=== PATIENT | female | born 1985 | race Caucasian/White ===

== ENCOUNTER → 2017-10-12 | Outpatient (CLI) | payer OTHER, BC ==
[~2017-10-12] MED LIST: IBUP800 PO; Verotin-Gr Cap1 EACH PO
[2017-10-16 21:09] LABS: CHLAMYDIA TRACHOMATIS, NAA Negative (Negative); NEISSERIA GONORRHOEAE, NAA Negative (Negative)
== END | disposition home or self-care (01) ==
LOC: LAB SHORT 11:35 → LAB 11:35
PROVIDERS: Family Medicine
DX: Z11.3 Encounter for screening for infections with a predominantly sexual mode of transmission (principal)
CPT/HCPCS: 87491; 87591

== ENCOUNTER 2018-07-03 20:15 | Inpatient (IN) | payer OTHER, BC ==
[~2018-07-03] VITALS: Ht 165.1 cm; Wt 0.1 kg
[2018-07-03 21:05] LABS: BASOPHILS ABSOLUTE AUTO 0.03 K/mm3 (0.00-0.23); BASOPHILS PERCENT AUTO 0 % (0-2); EOSINOPHILS ABSOLUTE AUTO 0.13 K/mm3 (0.00-0.68); EOSINOPHILS PERCENT AUTO 1 % (0-6); Hematocrit 36.8 % (33.0-51.0); Hemoglobin 12.6 g/dL (11.5-16.0); IMMATURE GRAN ABSOLUTE AUTO 0.07 K/mm3 (0.00-0.10); IMMATURE GRAN PERCENT AUTO 1 % (0-1); LYMPHOCYTES ABSOLUTE AUTO 1.52 K/mm3 (0.84-5.20); LYMPHOCYTES PERCENT AUTO 14 % (21-46); MONOCYTES PERCENT AUTO 5 % (4-13); Mean Corpuscular HGB 30.7 pg (26.0-34.0); Mean Corpuscular HGB Conc 34.2 g/dL (31.5-36.5); Mean Corpuscular Volume 90 fL (80-100); Mean Platelet Volume 9.4 fL (9.1-12.4); NEUTROPHILS ABSOLUTE AUTO 8.91 K/mm3 (1.96-9.15); NEUTROPHILS PERCENT AUTO 79 % (41-73); Platelet Count 221 K/mm3 (150-400); RDW Standard Deviation 42.6 fL (35.1-46.3); White Blood Cell Count 11.26 K/mm3 (4.00-11.30)
--- NOTE | 2018-07-04 16:26 | NUR ---
PLACED BY Rocío SARAH [facility]
[2018-07-05 06:17] LABS: BASOPHILS ABSOLUTE AUTO 0.03 K/mm3 (0.00-0.23); BASOPHILS PERCENT AUTO 0 % (0-2); EOSINOPHILS ABSOLUTE AUTO 0.07 K/mm3 (0.00-0.68); EOSINOPHILS PERCENT AUTO 1 % (0-6); Hematocrit 34.3 % (33.0-51.0); Hemoglobin 11.7 g/dL (11.5-16.0); IMMATURE GRAN PERCENT AUTO 1 % (0-1); LYMPHOCYTES ABSOLUTE AUTO 1.39 K/mm3 (0.84-5.20); LYMPHOCYTES PERCENT AUTO 10 % (21-46); MONOCYTES ABSOLUTE AUTO 0.79 K/mm3 (0.16-1.47); MONOCYTES PERCENT AUTO 6 % (4-13); Mean Corpuscular HGB 30.6 pg (26.0-34.0); Mean Corpuscular HGB Conc 34.1 g/dL (31.5-36.5); Mean Corpuscular Volume 90 fL (80-100); Mean Platelet Volume 9.2 fL (9.1-12.4); NEUTROPHILS PERCENT AUTO 83 % (41-73); Platelet Count 176 K/mm3 (150-400); RDW Coefficient Variation 13.1 % (11.7-14.2); RDW Standard Deviation 42.5 fL (35.1-46.3); Red Blood Cell Count 3.82 M/mm3 (3.80-5.20); White Blood Cell Count 14.38 K/mm3 (4.00-11.30)
--- NOTE | 2018-07-05 07:10 | NUR ---
0230 ASSUMED CARE. PATIENT SLEEPING
[2018-07-05] MEDS ORDERED: IBUP800 PO (10:34)
--- NOTE | 2018-07-05 16:27 | NUR ---
CONSULT. MOM IS EXPERIENCED, HAVING PROBLEMS WITH GETTING A DEEP LATCH ON LEFT NIPPLE. NIPPLE TENDS TO TRY AND INVERT SOME WHEN AREOLA PRESSURE IS APPLIED AND AREOLA AREA IS FAIRLY FIRM. AFTER SEVERAL DROPS OF COLOSTRUM INTO HER MOUTH, SHE DID OPEN WIDE TO LATCH AND WAS ABLE TO MAINTAIN THE LATCH. INSTRUCT/DEMO POSITIONING TO HELP OBTAIN THE DEEPER ASYMETRIC LATCH AND FURTHER WIDEN THE LATCH. MOM SELF EBM WELL. INSTRUCT IN CHANGES TO EXPECT DURING THE FIRST WEEK WITH BABY AND WITH FEEDINGS AND REFERRED TO [facility] AND PAGE 18 OF [facility] FOR PHOTOS AND INFORMATION. SHE IS LOVING WITH BABY.
--- NOTE | 2018-07-05 23:53 | NUR ---
PATIENT DISCHARGED TO [facility] AT 2075
== END 2018-07-05 23:55 | disposition home or self-care (01) | DRG 807 ==
LOC: BC 20:15
PROVIDERS: ADMIT Nurse Practitioner Obstetrics & Gynecology
PROC: 10E0XZZ Delivery of Products of Conception, External Approach (ICD-10-PCS; principal; 2018-07-04)
PROC: 10907ZC Drainage of Amniotic Fluid, Therapeutic from Products of Conception, Via Natural or Artificial Opening (ICD-10-PCS; 2018-07-04)
PROC: 3E0P7VZ Introduction of Hormone into Female Reproductive, Via Natural or Artificial Opening (ICD-10-PCS; 2018-07-04)
PROC: 10907ZC Drainage of Amniotic Fluid, Therapeutic from Products of Conception, Via Natural or Artificial Opening (ICD-10-PCS; 2018-07-04)
PROC: 3E0R3BZ Introduction of Anesthetic Agent into Spinal Canal, Percutaneous Approach (ICD-10-PCS; 2018-07-04)
PROC: 3E0234Z Introduction of Serum, Toxoid and Vaccine into Muscle, Percutaneous Approach (ICD-10-PCS; 2018-07-05)
DX: O76 Abnormality in fetal heart rate and rhythm complicating labor and delivery (principal); Z37.0 Single live birth; Z3A.40 40 weeks gestation of pregnancy; Z88.5 Allergy status to narcotic agent; Z88.0 Allergy status to penicillin; Z88.2 Allergy status to sulfonamides; Z23 Encounter for immunization
CPT/HCPCS: 36415; 51702; 85025; 86900; 86901; 90686; J1885; J2590; J3010; J7120

== ENCOUNTER 2021-02-04 21:45 | Emergency (ER) | payer OTHER, BC ==
[~2021-02-04] VITALS: Ht 165.1 cm; Wt 61.2 kg
== END 2021-02-05 00:05 | disposition home or self-care (01) ==
LOC: ER 21:45
DX: R53.83 Other fatigue (principal); M79.10 Myalgia, unspecified site; R11.0 Nausea; T50.B95A Adverse effect of other viral vaccines, initial encounter; Z88.2 Allergy status to sulfonamides; Z88.5 Allergy status to narcotic agent; Z88.0 Allergy status to penicillin; Z88.6 Allergy status to analgesic agent; Z88.8 Allergy status to other drugs, medicaments and biological substances
CPT/HCPCS: 96374; 99283-25; J1885; J7030

== ENCOUNTER → 2022-09-12 | Outpatient (CLI) | payer OTHER, BC ==
[2022-09-12 11:45] LABS: Bun/Creatinine Ratio 26.2 (12.0-20.0); Calcium, Blood 8.7 mg/dL (8.5-10.1); Creatinine, Blood 0.76 mg/dL (0.40-1.00); Potassium, Blood 3.7 mmol/L (3.5-5.5)
== END | disposition home or self-care (01) ==
LOC: LAB SHORT 09:00 → LAB 09:00
PROVIDERS: Hospitalist
DX: E55.9 Vitamin D deficiency, unspecified (principal)
CPT/HCPCS: 80048; 82306

== ENCOUNTER → 2023-06-12 | Outpatient (CLI) | payer OTHER, BC ==
[2023-06-12 14:30] LABS: Influenza A, PCR NEGATIVE (NEGATIVE); Influenza B, PCR NEGATIVE (NEGATIVE); Resp Syncytial Virus, PCR NEGATIVE (NEGATIVE); SARS-Cov-2 (COVID-19) PCR, MMC NEGATIVE (NEGATIVE)
== END | disposition home or self-care (01) ==
LOC: LAB SHORT 11:55 → LAB EV 11:55
PROVIDERS: Hospitalist
DX: J32.0 Chronic maxillary sinusitis (principal)
CPT/HCPCS: 0241U